=== PATIENT | female | born 1985 | race Caucasian/White ===

== ENCOUNTER 2017-07-07 07:41 | Emergency (ER) | payer MEDICAID ==
[2017-07-07 08:20] LABS: Basophils # (Auto) 0.1 K/mm3 (0.0-0.1); Eosinophils # (Auto) 0.2 K/mm3 (0.0-0.4); Hematocrit 40.4 % (30.3-42.9); Hemoglobin 13.2 gm/dl (10.1-14.3); Lymphocytes % (Auto) 15.9 % (13.4-35.0); Mean Corpuscular HGB Conc 33 % (30-34); Mean Corpuscular Hemoglobin 26 pg (28-32); Mean Corpuscular Volume 80 fl (79-97); Monocytes # (Auto) 0.8 K/mm3 (0.0-0.8); Monocytes % (Auto) 6.3 % (0.0-7.3); Platelet Count 326 K/mm3 (140-440); Red Blood Count 5.03 M/mm3 (3.65-5.03); Red Cell Distribution Width 14.6 % (13.2-15.2)
[2017-07-07 08:48] LABS: Bacteria,Urine 1+ /HPF (Negative); Bilirubin,Urine NEG (Negative); Blood,Urine MOD (Negative); Color,Urine Yellow (Yellow); Mucus,Urine FEW /HPF; Protein,Urine <15 mg/dL mg/dL (Negative); Urobilinogen,Urine < 2.0 mg/dL (<2.0)
--- NOTE | 2017-07-07 10:35 | Ultrasound Report ---
FINAL REPORT EXAM: US OB TRANSVAGINAL HISTORY: abd pain/vaginal bleeding TECHNIQUE: Early obstetrical ultrasound. Transvaginal study read in conjunction with transabdominal study performed concurrently PRIORS: None. FINDINGS: There is a gestational sac in the uterus. This contains a small yolk sac and pole. The crown rump length measurement corresponds to a gestational age of 6 weeks 3 days which corresponds to KENNETH of 02/27/2018. Cardiac activity is identified, measured at 127 beats per minute. There is a minimal subchorionic hemorrhage posteriorly.. Measures about 1.1 cm maximum dimension. Corpus luteum seen in the right ovary. Right ovary measures 3.3 x 2.3 x 2.2 cm. The left measures 2.2 x 1.6 x 1.4 cm. IMPRESSION: Single live intrauterine of approximately 6 weeks 3 days gestational age. This corresponds to KENNETH of 02/27/2018. Minimal subchorionic hemorrhage noted posteriorly
--- NOTE | 2017-07-07 10:37 | Ultrasound Report ---
FINAL REPORT EXAM: US OB < = 14 WEEKS FETUS HISTORY: abd pain/vaginal bleeding TECHNIQUE: Early obstetrical ultrasound. Transabdominal study read in conjunction with transvaginal exam performed concurrently PRIORS: None. FINDINGS: There is a gestational sac in the uterus. This contains a small yolk sac and pole. The crown rump length measurement corresponds to a gestational age of 6 weeks 3 days which corresponds to KENNETH of 02/27/2018. Cardiac activity is identified, measured at 127 beats per minute. There is a minimal subchorionic hemorrhage posteriorly.. Measures about 1.1 cm maximum dimension. Corpus luteum seen in the right ovary. Right ovary measures 3.3 x 2.3 x 2.2 cm. The left measures 2.2 x 1.6 x 1.4 cm. IMPRESSION: Single live intrauterine of approximately 6 weeks 3 days gestational age. This corresponds to KENNETH of 02/27/2018. Minimal subchorionic hemorrhage noted posteriorly
--- NOTE | 2017-07-07 12:36 | Emergency Department Report ---
ED Abdominal Pain HPI - General Chief Complaint: Abdominal Pain Stated Complaint: ABD PAIN Time Seen by Provider: 07/07/17 11:44 Source: patient Mode of arrival: Ambulatory Limitations: No Limitations - History of Present Illness Initial Comments: 31-year-old female approximately 6 weeks that presents to the ER of 1 day of intermittent bilateral lower abdominal pain/cramping. No urinary symptoms. Mild vaginal spotting seen. Endorses nausea, no vomiting. Afebrile. No chest pain or shortness of breath. Patient has had 2 abortions in the past. Has not been to her OB yet for her initial ultrasound. Abdominal pain not affected by urination or eating. - Related Data Previous Rx's Medication Instructions Recorded Last Taken Type Cephalexin [Keflex] 500 mg PO Q8HR #12 cap 07/07/17 Unknown Rx Allergies Allergy/AdvReac Type Severity Reaction Status Date / Time No Known Allergies Allergy Unverified 07/07/17 07:49 ED Review of Systems ROS: Stated complaint: ABD PAIN Other details as noted in HPI Constitutional: denies: chills, fever Eyes: denies: eye pain, eye discharge, vision change ENT: denies: ear pain, throat pain Respiratory: denies: cough, shortness of breath, wheezing Cardiovascular: denies: chest pain, palpitations Endocrine: no symptoms reported Gastrointestinal: abdominal pain, nausea. denies: diarrhea Genitourinary: hematuria. denies: urgency, dysuria, discharge Musculoskeletal: denies: back pain, joint swelling, arthralgia Skin: denies: rash, lesions Neurological: denies: headache, weakness, paresthesias Psychiatric: denies: anxiety, depression Hematological/Lymphatic: denies: easy bleeding, easy bruising ED Past Medical Hx - Past Medical History Previous Medical History?: No - Surgical History Past Surgical History?: Yes Additional Surgical History: cervical - Social History Smoking Status: Never Smoker Substance Use Type: None - Medications Home Medications: Home Medications Medication Instructions Recorded Confirmed Last Taken Type Cephalexin [Keflex] 500 mg PO Q8HR #12 cap 07/07/17 Unknown Rx ED Physical Exam - General Limitations: No Limitations General appearance: alert, in no apparent distress - Head Head exam: Present: atraumatic, normocephalic - Eye Eye exam: Present: normal appearance - ENT ENT exam: Present: mucous membranes moist - Neck Neck exam: Present: normal inspection - Respiratory Respiratory exam: Present: normal lung sounds bilaterally. Absent: respiratory distress - Cardiovascular Cardiovascular Exam: Present: regular rate, normal rhythm. Absent: systolic murmur, diastolic murmur, rubs, gallop - GI/Abdominal GI/Abdominal exam: Present: soft, normal bowel sounds - Bi-manual exam: Present: normal bi-manual exam (cervix is closed). Absent: cervical motion tendernes, adnexal tenderness, uterine tenderness - Extremities Exam Extremities exam: Present: normal inspection - Back Exam Back exam: Present: normal inspection - Neurological Exam Neurological exam: Present: alert, oriented X3 - Psychiatric Psychiatric exam: Present: normal affect, normal mood - Skin Skin exam: Present: warm, dry, intact, normal color. Absent: rash ED Course Vital Signs 07/07/17 07:46 Temperature 98.0 F Pulse Rate 74 Respiratory 16 Rate Blood Pressure 124/64 O2 Sat by Pulse 99 Oximetry ED Medical Decision Making - Lab Data Result diagrams: 07/07/17 07:52 - Radiology Data Radiology results: report reviewed, image reviewed - Medical Decision Making female approximately 6 weeks that presents to the ER and bowel movement. Ultrasound shows IUP with mild subchorionic hemorrhage. Urinalysis concern for a stenotic bacteriuria. White count is 12.3. Likely this is nonspecific. Low concern for sepsis, pyelonephritis, or systemic infection. Patient will be started on Keflex for her bacteriuria. She has a normal bimanual exam. I instructed the patient follow up with her OB for further management. - Differential Diagnosis IUP, ectopic , threatened versus incomplete miscarriage, STD, UTI Critical care attestation.: If time is entered above; I have spent that time in minutes in the direct care of this critically ill patient, excluding procedure time. ED Disposition Clinical Impression: Threatened in first trimester Disposition: DC-01 TO HOME OR SELFCARE Is pt being admited?: No Does the pt Need Aspirin: No Condition: Stable Instructions: Threatened Miscarriage (ED) Additional Instructions: Please follow-up with your OB at your next available appointment. Start taking 1000 mg Tylenol every 6 hours as needed for pain relief. Take your antibiotics as prescribed. Prescriptions: Cephalexin [Keflex] 500 mg PO Q8HR #12 cap Referrals: PRIMARY CARE, [Primary Care Provider] - 3-5 Days
[2017-07-07 12:39] VITALS: BP 129/72
== END 2017-07-07 12:50 | disposition home or self-care (01) ==
LOC: ED 07:41
DX: O20.0 Threatened abortion (principal); Z3A.01 Less than 8 weeks gestation of pregnancy
CPT/HCPCS: 36415; 76801; 76817; 81001; 84702; 85025; 86850; 86900; 86901; 99284